=== PATIENT | male | born 1995 | race Hispanic/Latino ===

== ENCOUNTER 2024-02-20 19:44 | Emergency (ER) | payer SELFPAY ==
[~2024-02-20] VITALS: Ht 172.7 cm; Wt 65.8 kg
[2024-02-20] MEDS ORDERED: DIPH50 PO (20:02)
[2024-02-20] MEDS ORDERED: METH4TAB3 PO (20:02)
--- NOTE | 2024-02-20 20:02 | ERN ---
ED Note History of Present Illness Stated Complaint: POSSIBLE ALLERGIC REACTION Chief Complaint: Allergic Reaction Time Seen by MD: 19:54 Dictation: PATIENT IS HERE FROM HOME VIA EMS WITH COMPLAINTS OF HAVING A POSSIBLE ALLERGIC REACTION TO SOME IBUPROFEN HE HAD TAKEN APPROXIMATELY 2 HOURS PRIOR TO ARRIVAL. HE HAS BEEN FEELING BAD FOR THE LAST TWO DAYS TOOK SOME IBUPROFEN THIS EVENING STARTED DEVELOPING AN URTICARIAL RASH AND HAD MILD ANGIOEDEMA TO THE LIPS. EMS WAS CALLED AND THEY ADMINISTERED BENADRYL AND EPINEPHRINE. CURRENTLY SKIN IS CLEAR NO ANGIOEDEMA AT THIS TIME. NO RASH NOTED Allergies: Coded Allergies: ibuprofen (Unverified Allergy, Intermediate, HIVES, SOB, 02/20/24) Past Medical History Past Medical History: No Pertinent History Surgical History: None RN Note Reviewed/Agreed w/PFSH: Yes Review of System Dictation CONSTITUTIONAL: NEGATIVE EXCEPT FOR HPI HEAD/FACE: NEGATIVE EXCEPT FOR HPI EENT: NEGATIVE EXCEPT FOR HPI ANGIOEDEMA OF LIPS RESPIRATORY: NEGATIVE EXCEPT FOR HPI GASTROINTESTINAL/ABDOMINAL: NEGATIVE EXCEPT FOR HPI GENITOURINARY: NEGATIVE EXCEPT FOR HPI MUSCULOSKELETAL: NEGATIVE EXCEPT FOR HPI INTEGUMENTARY: NEGATIVE EXCEPT FOR HPI URTICARIAL RASH NEUROLOGICAL/PSYCH: NEGATIVE EXCEPT FOR HPI HEMATOLOGIC/LYMPHATIC: NEGATIVE EXCEPT FOR HPI ALL SYSTEMS NEGATIVE, EXCEPT NOTED ABOVE. 13 POINT REVIEW OF SYSTEMS ASSESSED AND ALL NEGATIVE EXCEPT FOR ABOVE. Initial Vital Sign VS Vital Signs Date Time Temp Pulse Resp B/P (MAP) Pulse Ox O2 Delivery O2 Flow Rate FiO2 02/20/24 19:45 98.8 97 16 136/83 96 Room Air* 0 21 Physical Exam Dictation VITAL SIGNS REVIEWED GENERAL APPEARANCE: ALERT, ORIENTED X 3, NO ACUTE DISTRESS, WELL DEVELOPED, NOURISHED. HEAD AND FACE: NON-TRAUMATIC. EYES: PERRL, PINK CONJUNCTIVAS, EYELID NO TRAUMA, ANTERIOR CHAMBER WITH ARCUS SENILIS. EARS: PINNAS INTACT AND NO SIGNS OF TRAUMA OR ERYTHEMA EAR CANALS CLEAR AND NO DISCHARGE TM NO ERYTHEMA NOSE: NO DISCHARGE, NO BLEEDING. OROPHARYNX: MOUTH NORMAL, TONGUE PINK, NO ANGIOEDEMA/VOICE IS CLEAR PHARYNX CLEAR,NO ERYTHEMA, TONSILS NO EXUDATES, NO ABSCESSES NOTED, MUCOUS MEM BRANE MOIST NECK: SUPPLE, NON-TENDER, NO THYROMEGALY, NO MASSES, NO JVD, NO BRUITS BREAST:DEFERRED CHEST:NO TENDERNESS, NO CREPITUS, NO PARADOXICAL MOVEMENT, NO RETRACTIONS LUNGS:CLEAR, WELL-VENTILATED, SYMMETRIC, NO RALES, NO WHEEZING, NO RHONCHI, NO STRIDOR, GOOD BREATH SOUNDS BILATERALLY HEART: REGULAR RATE, REGULAR RHYTHM, NO MURMUR, NO GALLOPS VASCULAR: NO PERIPHERAL EDEMA, ABDOMEN: SOFT, POSITIVE BOWEL SOUNDS, NONDISTENDED, NO GUARDING, NONTENDER, NO REBOUND, NO MASSES NO HEPATOMEGALY, NO SPLENOMEGALY, NO HULL'S SIGN, NO HERNIAS. RECTAL: DEFERRED GENITAL: DEFERRED NEUROLOGICAL: NORMAL SPEECH, MOTOR FUNCTION INTACT, SENSORY FUNCTION INTACT MUSCULOSKELETAL: NECK NONTENDER, FULL RANGE OF MOTION, BACK NONTENDER, FULL RANGE OF MOTION, EXTREMITIES: NONTENDER, FULL RANGE OF MOTION SKIN: COLOR PINK, DRY, NO TURGOR, NO RASH, NO LACERATIONS, NO ABRASIONS, NO CONTUSIONS. NO RASH AT THIS TIME. LYMPHATIC: DEFERRED Results (Laboratory/Radiology) Labs Reviewed?: Yes ED Course ED Course Orders Procedure Category Date Status Time Methylprednisolone PHA 02/20/24 Verified Succ 125mg (Solu-Medr 20:00 Famotidine 20mg Tab PHA 02/20/24 Verified (Pepcid 20mg Tab) 20:00 Vital Signs Date Time Temp Pulse Resp B/P (MAP) Pulse Ox O2 Delivery O2 Flow Rate FiO2 02/20/24 19:46 98.8 97 16 136/83 Room Air 0 02/20/24 19:45 98.8 97 16 136/83 96 Room Air* 0 21 Medical Decision Making MDM MEDICAL DISCHARGE MAKING BASED ON EMPIRIC TREATMENT OF AN ACUTE ALLERGIC REACTION TO UNKNOWN ETIOLOGY. PATIENT HAD RECEIVED BENADRYL AND EPINEPHRINE BY EMS PATIENT WILL BE GIVEN SOLU-MEDROL AND PEPCID BEFORE DISCHARGED HOME. GIVEN A LIST OF PRIMARY CARE DOCTORS FOLLOW UP IN THE NEXT 1-2 DAYS. DX & DISP Disposition: Discharge Departure Impression: Primary Impression: Acute allergic reaction Additional Impression: Urticaria Condition: Stable Scripts Diphenhydramine HCl (Benadryl) 50 Mg Cap 50 MG PO Q6H for itching/rash, #20 CAP 0 Refills Prov: CINDA JOHN NP 02/20/24 Methylprednisolone (Medrol) 4 Mg Tab.ds.pk 1 TAB PO AD for 6 Days, #21 TAB 0 Refills 6 on day 1 then reduce by one tablet daily until gone Prov: CINDA JOHN NP 02/20/24 Additional Instructions: FOLLOW-UP WITH PRIMARY CARE PROVIDER IN 1 TO 2 DAYS. TAKE MEDICATIONS DIRECTED HERE IN THE EMERGENCY ROOM. OKAY TO CONTINUE HOME MEDICATIONS UNLESS OTHERWISE DISCUSSED DURING YOUR VISIT IN THE EMERGENCY ROOM TODAY. RETURN TO YOUR NEAREST EMERGENCY ROOM IF SYMPTOMS WORSEN OR IF THERE IS NO IMPROVEMENT. CALL 911 IF YOU NEED IMMEDIATE ASSISTANCE. TAKE TYLENOL OR MOTRIN [id number] NEEDED AND IF NO CONTRAINDICATIONS ARE PRESENT. INCREASE ORAL HYDRATION. A WOUND CULTURE OR URINE CULTURE WAS ORDERED HERE IN THE EMERGENCY ROOM DEPARTMENT PLEASE FOLLOW-UP WITH PRIMARY CARE PROVIDER AND ADVISE THEM TO GET REPEAT PORTS FROM OUR FACILITY. IF YOU HAD ANY OSVALDO WRAP/SPLINTS THAT WERE APPLIED HERE, PLEASE DO NOT REMOVE THEM UNTIL YOU SEE YOUR PRIMARY CARE OR SPECIALTY. TAKE BENADRYL 50 MG BY MOUTH EVERY 6 HOURS FOR THREE MORE DOSES. TAKE MEDROL DOSEPAK DIRECTED UNTIL GONE. FOLLOW UP WITH ONE OF THE DOCTORS ON THE LIST PROVIDED YOU IN 1-2 DAYS. AVOID THE IBUPROFEN YOU TOOK EARLIER TODAY THAT CAUSED THE REACTION. Time of Disposition: 20:01 I have reviewed the case, and I agree with, Diagnosis and Plan CINDA JOHN NP Feb 20, 2024 20:02
[2024-02-20] MEDS: FAMOTIDINE 20MG TAB PO ONE (21:02)
[2024-02-20] MEDS: Solu-medROL 125MG VIAL IVP ONE (21:02)
[2024-02-20 21:08] VITALS: BP 127/67; PULSE 78; RESP 18; TEMP 98.2; O2SAT 98
== END 2024-02-20 21:09 | disposition home or self-care (01) ==
LOC: EDH 19:44
DX: L50.0 Allergic urticaria (principal); Z88.6 Allergy status to analgesic agent
CPT/HCPCS: 99283; 96374; J2919; 96372